=== PATIENT | female | born 1965 | race Caucasian/White ===

== ENCOUNTER 2019-12-15 08:52 | Outpatient (CLI) | payer BC, SELFPAY ==
--- NOTE | 2019-12-15 09:10 | IR_ITS ---
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 FLUOROSCOPY TIME: 1.2 minutes. Procedure, risks and complications were explained to the patient. Risks including bleeding, infection , headaches, allergic reaction and seizures. Consent has been obtained. With the patient in prone position the skin over the lumbar region is cleansed with ChloraPrep and an esthetized with lidocaine. 22-gauge spinal needle is inserted into the thecal sac at the appropriate level determined by fluoroscopy. Omnipaque 300; 10 ml is injected slowly under fluoroscopy with no co mplications. Needle bevel is perpendicular to the longitudinal fibers of the dura. Stylet is reinsert ed prior to removal of the needle. Patient tolerated the procedure well. Patient will proceed to CT f or further evaluation. Straightening of the normal cervical lordosis. No significant instability is demonstrated. Mild osteo phytic ridging around the vertebral bodies, most significant at C5 and C6. Osteophytes extend posteri warner by 2.7 mm from C5 and C6. No prevertebral soft tissue swelling. Facet joint arthropathy is moderate at L5-S1. 3 mm retrolisthesis of L2 and 2 mm retrolisthesis of L3 . IR/IR myelogram sp cervical 22167 IMPRESSION: 1. Uncomplicated cervical myelogram. 2. Mild straightening of the cervical spine with no instability. 3. Hypertrophic vertebral osteophytes most significant at the C5 and C6 level.
--- NOTE | 2019-12-15 09:11 | CT_ITS ---
WS: [id number] CT CERVICAL MYELOGRAM HISTORY: CERVICAL DISC DISORDER WITH MYELOPATHY OF MIDCERVICAL REGION Technique: All CT scans at [facility] use at least one of these dose optimization techniq ues: automated exposure control; mA and/or kV adjustment per patient size (includes targeted exams wh ere dose is matched to clinical indication); or iterative reconstruction. DLP: 1843.51 mGycm COMPARISON: 06/19/2014 and MRI 11/07/2018 Good opacification of thecal sac with contrast. Straightening of the normal cervical lordosis. No fractures in the craniocervical junction is normal. Lateral masses of C1 and C2 are aligned. Endplate hypertrophic osteophytes and mild disc disease fro m C3-4 through C6-7. C1-C2: Normal. C2-C3: Normal. C3-C4: Mild hypertrophic osteophytic ridging. Deformity of the ventral thecal sac greatest on the LEF T without significant stenosis. Near complete effacement of LEFT lateral CSF. C4-C5: Mild diffuse hypertrophic bone formation. No stenosis. C5-C6: Mild osteophytic ridging and annular disc bulging. Bilateral paracentral osteophyte encroachin g upon the ventral thecal sac. Effacement of CSF and mild deformity of the cord. Mild central and loyda ateral foraminal stenosis. C6-C7: Mild osteophytic ridging with mild encroachment upon the ventral thecal sac. Paravertebral soft tissues are normal. Bilateral small cervical chain lymph nodes and mild atheroscle rosis within the carotid arteries. Lung apices are clear. CT/CT cervical spine w con [id number] IMPRESSION: 1. Multilevel cervical spondylosis, most significant at C5-6. 2. Bilateral paracentral osteophyte encroachment upon the thecal sac and effac ement of CSF at C5-6. Resulting in mild central and bilateral foraminal stenosi s. Osteophytes contact the ventral cord bilaterally. 3. Smaller vertebral body osteophytes at C3-4 and C4-5 and C6-7.
[2019-12-15] MEDS: iohexol 300 mg/mL 50 mL Btl INTRATHECA (10:37)
== END 2019-12-15 08:53 | disposition home or self-care (01) ==
LOC: RADWPI 08:57
PROVIDERS: Family Provider Family Medicine; Visit Provider Licensed Practical Nurse
DX: M50.020 Cervical disc disorder with myelopathy, mid-cervical region, unspecified level (principal); M47.892 Other spondylosis, cervical region; M25.78 Osteophyte, vertebrae
CPT/HCPCS: 62302; 72040; 72126

== ENCOUNTER → 2020-01-13 15:07 | Outpatient (BNVA) | payer BC, SELFPAY | PROVIDERS: Family Provider Family Medicine; PCP Family Medicine; Referring Provider Licensed Practical Nurse; Visit Provider Psychiatry & Neurology Neurology | DX: M54.2 Cervicalgia (principal); G56.01 Carpal tunnel syndrome, right upper limb | CPT/HCPCS: 95886; 95908 ==

== ENCOUNTER 2020-04-29 06:04 | Day surgery (SDC) | payer BC, SELFPAY ==
[2020-04-28 12:02] VITALS: BMI 45.8
[2020-04-29 06:15] VITALS: BP 148/90; PULSE 82; RESP 18; TEMP 36.2; O2SAT 96
--- NOTE | 2020-04-29 06:33 | ANES.PREANE2 ---
Pre-Anesthetic Assessment Pre-Anesthetic Assessment: Height/Weight: Height 1.68 m Weight 128.82 kg Temp Pulse Resp BP Pulse Ox 97.2 F L 82 18 148/90 96 04/29/20 06:15 04/29/20 06:15 04/29/20 06:15 04/29/20 06:15 04/29/20 06:15 Preop Diagnosis: Median nerve entrapment at the right wrist Proposed Procedure: Operation Date: 04/29/20 07:10 Proposed Procedures p Open release of the median nerve at the right wrist 35291 G56.01(Right) - Noah Felipe MD Last intake: Intake Last Liquid Date 04/28/20 Last Solid Date 04/28/20 Social: Social History: Tobacco (2014 quit) and No alcohol Exam: Pre-Anes Outpt Exam: alert, oriented x 3, clear to auscultation bilaterally and regular rate & rhythm Airway: Submandibular: WNL Cervical ROM: WNL MP: 1 Dentition: False (upper and lower) History/ROS: No significant history except as noted Pulmonary: Pulmonary: CHILDRESS and Sleep apnea CV/HEM: CV/HEM: HTN : : None reported Hepatic: Hepatic: None reported GI: GI: GERD (occ) Metabolic: Metabolic: DM, Hyperlipidemia and Morbid obesity Musc/skel: Musc/skel: Lower Back Pain and OA/DJD Neuropsych: Neuropsych: Neuropathy (hands) Anesthetic Plan: ASA status: 3 Anesthesia: Anesthesia Evaluation and MAC Risk of > 500 ml blood loss (7ml/kg in children): No PFSH Anesthesia PFSH: Medical History (Updated 02/25/20 @ 14:31 by Noah Felipe MD) Cervical disc disorder with myelopathy of mid-cervical region Social History (Updated 02/25/20 @ 14:32 by Viviane Worrell LPN) Smoking and tobacco status: never smoked Alcohol intake: never Lives independently: Yes Marital status: / Current occupational status: employed History of recent travel: No Data Anesthesia Cardiac Studies: No Data to Display
[2020-04-29] MEDS: sodium chloride 0.9% 1,000 ML 30 ML IV (06:51)
--- NOTE | 2020-04-29 07:10 | W.PM.OPSUD ---
Surgery/Procedure H&P Update DATE OF PROCEDURE: April 29, 2020 DATE H&P PERFORMED: 04/16/20 H&P UPDATE INFORMATION: I have reviewed H&P completed within last 30 days and H&P to be scanned into chart PREOP DIAGNOSIS: Median nerve entrapment at the right wrist PRIMARY INDICATION FOR PROCEDURE: Pain/numbness PLANNED PROCEDURE: Operation Date: 04/29/20 07:10 Proposed Procedures Open release of the median nerve at the right wrist 60278 G56.01(Right) - Noah Felipe MD
--- NOTE | 2020-04-29 07:12 | P.OP_ITS ---
Brief Operative Note: Date of procedure: 04/29/20 Pre-op diagnosis: Median nerve entrapment at right wrist Post-op diagnosis: same Procedure Done: Open release of median nerve at right wrist. Surgeon: Noah Felipe Estimated blood loss (mL): 2 Complications: None. Post-op Plan: Home per A mbulatory Surgery protocol. Condition: stable Disposition: same day Coding Level of Care Code Acute Product Developer for Merlin Davey
[2020-04-29] MEDS: neomycin-poly-bacitracin oint 28 gm 1 APPLIC TOPICAL (07:35)
[2020-04-29 07:59] VITALS: BP 153/88; PULSE 84; RESP 18; TEMP 36.1; O2SAT 97
[2020-04-29 08:25] VITALS: BP 140/89; PULSE 75; RESP 18; O2SAT 96
--- NOTE | 2020-04-29 18:15 | P.OP_ITS ---
Operative Report Date of procedure: April 30, 2020 Pre-op Diagnosis: Median nerve entrapment at the right wrist Post-op diagnosis: same Procedure Done: Open release of the median nerve at the right wrist. Pathology: none sent Surgeon: Noah Felipe Anesthesia: MAC Estimated blood loss (mL): 2 IV fluids (mL): 400 Complications: None. Condition: stable Disposition: same day Brief History: The patient is a 54-year-old white female with symptomatic, electrodiagnostically confirmed moderately severe median nerve entrapment at the right wrist. Symptoms progressed and were refractory to conservative treatment measures, including wrist splinting. After review of the diagnostic and treatment options with the risks/potential benefits/rationale for each, the patient requested to proceed with open release of the median nerve at the right wrist. Procedure: After routine preoperative evaluation and informed consent were obtained, the patient was taken to the Operating Room and positioned supine on the operating table. She was maintained under intravenous sedation by Anesthesia personnel. The right upper extremity was extended on an arm board. A proposed incision was marked with a sterile skin marker. The extremity was scrubbed with Betadine and prepped with DuraPrep from the fingertips to the axilla. Sterile towels, sterile drapes, and a sterile stockinette were utilized for draping of the operative field. An opening was fashioned in the sterile stockinette over the palmar aspect of the right hand. An Ioban surgical barrier was placed. The proposed incision site was infiltrated with 1% Xylocaine with Epinephrine. A skin incision was made and carried down into the subcutaneous tissues. Self- retaining retractors were placed. The markedly thickened transverse carpal ligament was divided over the course of the median nerve in the palm. The ligament was divided distally until the palmar fat pad was encountered. Pr oximally, the ligament was divided with fine Metzenbaum scissors to a point approximately 2 centimeters above the wrist crease. There were mild epineural adhesions, which were treated with limited adhesiolysis. There was no evidence of residual median nerve impingement or entrapment in the visualized segment of the nerve at the completion of the procedure. The wound was then copiously irrigated with antibiotic irrigation. Hemostasis was ensured with the bipolar electrocautery. Wound closure was performed as a single layer utilizing 4-0 Nylon in a simple interrupted fashion. Antibiotic ointment was placed along the incision line. A bulky hand dressing was fashioned utilizing a combination of Kerlix fluffs, a Kerlix wrap, and an JAZZY/elastic bandage. The patient was transported to the Ambulatory Surgery Area for discharge home, as per the Ambulatory Surgery protocol. The patient tolerated the procedure well. All sponge, needle, and instrument counts were correct at the completion of the procedure.
== END 2020-04-29 09:09 | disposition home or self-care (01) ==
PROVIDERS: PCP Family Medicine; Visit Provider Specialist
PROC: (CPT 64721; principal; 2020-04-29 07:00)
DX: G56.01 Carpal tunnel syndrome, right upper limb (principal); Z87.891 Personal history of nicotine dependence; I10 Essential (primary) hypertension; K21.9 Gastro-esophageal reflux disease without esophagitis; E78.5 Hyperlipidemia, unspecified; M19.90 Unspecified osteoarthritis, unspecified site; E66.01 Morbid (severe) obesity due to excess calories; Z68.42 Body mass index [BMI] 45.0-49.9, adult; G47.30 Sleep apnea, unspecified; E11.40 Type 2 diabetes mellitus with diabetic neuropathy, unspecified
CPT/HCPCS: 64721; 12345; J0690; J2001; J2250; J2704; J3490; J7030

== ENCOUNTER 2020-06-30 14:04 | Outpatient (CLI) | payer BC, SELFPAY ==
--- NOTE | 2020-06-30 14:10 | XR_ITS ---
WS: [id number] HIP WITH PELVIS LEFT TECHNIQUE: 3 views of the left hip with pelvis CLINICAL INFORMATION: PAIN IN LEFT HIP COMPARISON: None. FINDINGS: Mild degenerative arthritis left hip. No acute fractures. Normal femoral neck. Osteopenia. XR/XR hip LT 2-3V wo/w pel* [id number] IMPRESSION: Mild degenerative arthritis left hip. No acute fractures.
== END 2020-06-30 14:05 | disposition home or self-care (01) ==
LOC: RAD 14:07
PROVIDERS: PCP Family Medicine; Visit Provider Anesthesiology Pain Medicine
DX: M25.552 Pain in left hip (principal); M16.12 Unilateral primary osteoarthritis, left hip
CPT/HCPCS: 73502

== ENCOUNTER 2020-12-27 15:10 | Outpatient (CLI) | payer OTHER, SELFPAY ==
--- NOTE | 2020-12-27 15:19 | MM_ITS ---
WS: [id number] BILATERAL SCREENING DIGITAL MAMMOGRAM WITH CAD HISTORY: SCREENING COMPARISON: 01/31/2019, 01/15/2018 and 12/21/2017 and 03/27/2013 Bilateral CC and MLO views submitted. Computer aided detection analyzed. Breast composition: There are scattered areas of fibroglandular density. No suspicious masses, microc alcifications or architectural distortion. Lobulated nodule in the central LEFT breast is similar to prior studies. MM/[place] [id number] IMPRESSION: BI-RADS: 2-Benign FOLLOW UP: 1 Year Follow-up
== END 2020-12-27 15:11 | disposition home or self-care (01) ==
LOC: RADSHAW 15:17
PROVIDERS: Visit Provider Nurse Practitioner Family
DX: Z12.31 Encounter for screening mammogram for malignant neoplasm of breast (principal)
CPT/HCPCS: 77067

== ENCOUNTER 2022-04-11 11:49 | Outpatient (CLI) | payer OTHER, SELFPAY ==
--- NOTE | 2022-04-11 12:12 | XRR_ITS ---
PROCEDURE INFORMATION: Exam: XR Left Shoulder Exam date and time: 04/11/2022 12:12 PM Age: 56 years old Clinical indication: Pain; Shoulder; Left; Additional info: Shoulder joint pain-l shoulder TECHNIQUE: Imaging protocol: XR Left shoulder. Views: 2 or more views. COMPARISON: CT cervical spine w con [id number] 12/15/2019 10:23 AM FINDINGS: Bones/joints: There is an old healed fracture of the shaft of the clavicle. No recent fracture, dislocation or other acute abnormality. There is chronic spurring on the undersurface of the acromion. The joint spaces are not significantly narrowed. Soft tissues: Normal. XR/XR shoulder LT min 2V* [id number] IMPRESSION: Chronic spurring on the undersurface of the acromion. No acute abnormality.
--- NOTE | 2022-04-11 12:12 | XRR_ITS ---
PROCEDURE INFORMATION: Exam: XR Left Knee Exam date and time: 04/11/2022 12:12 PM Age: 56 years old Clinical indication: Pain; Knee; Left; Additional info: Left knee joint pain TECHNIQUE: Imaging protocol: XR Left knee. Views: 4 or more views. COMPARISON: CR Knee 3 views, LEFT* [id number] 01/02/2018 3:04 PM FINDINGS: Bones/joints: No fracture or other acute bone or joint abnormality. Moderate DJD is present with osteophytes on the patella, femoral condyles and tibial plateau. There is moderate joint space narrowing. Soft tissues: Normal. XR/XR knee LT 4V [id number] IMPRESSION: Moderate degenerative disease. No acute abnormality.
== END 2022-04-11 11:50 | disposition home or self-care (01) ==
PROVIDERS: PCP Nurse Practitioner Family; Visit Provider Nurse Practitioner Family
DX: M25.512 Pain in left shoulder (principal)
CPT/HCPCS: 73030; 73564

== ENCOUNTER 2022-06-27 13:12 | Outpatient (CLI) | payer OTHER, SELFPAY ==
--- NOTE | 2022-06-27 13:20 | MM_ITS ---
WS: [id number] BILATERAL 3D TOMOSYNTHESIS DIGITAL SCREENING MAMMOGRAPHY WITH CAD CLINICAL INFORMATION: SCREENING HISTORY: Screening mammogram. No current complaints. COMPARISON: December 27, 2020 TECHNIQUE: Bilateral CC and MLO views. FINDINGS: Scattered fibroglandular densities bilaterally. Incidental punctate calcifications. Stable ovoid nodu le central LEFT breast. No suspicious focal mass, asymmetry, calcifications, or architectural distort ion. No evidence of malignancy. MM/[place] [id number] IMPRESSION: BI-RADS: 2-Benign FOLLOW UP: 1 Year Follow-up Recommend return to annual screening mammography.
== END 2022-06-27 13:13 | disposition home or self-care (01) ==
LOC: RAD 13:12
PROVIDERS: PCP Nurse Practitioner Family; Visit Provider Nurse Practitioner Family
DX: Z12.31 Encounter for screening mammogram for malignant neoplasm of breast (principal)
CPT/HCPCS: 77063; 77067

== ENCOUNTER → 2022-08-16 14:48 | Outpatient (BNVA) | payer OTHER, SELFPAY | PROVIDERS: PCP Nurse Practitioner Family; Visit Provider Specialist | DX: M25.511 Pain in right shoulder (principal); M25.512 Pain in left shoulder; G89.29 Other chronic pain | CPT/HCPCS: 73030 ==

== ENCOUNTER 2023-02-14 06:02 | Outpatient (CLI) | payer OTHER, SELFPAY ==
--- NOTE | 2023-02-14 | US_ITS ---
WS: [id number] ABDOMINAL ULTRASOUND LIMITED REASON FOR EXAM: EPIGASTRIC PAIN COMPARISON: None available. ORDER DATE: 02/14/2023 6:11 AM TECHNIQUE: Grayscale and Doppler ultrasound examination of the abdomen. FINDINGS: Pancreas: Unremarkable as visualized Abdominal aorta: 24 mm in diameter. IVC unremarkable measuring 21 mm in diameter Liver: Liver measures 18.1 cm in length suggesting mild hepatomegaly. Normal echotexture Gallbladder: No evidence of calculi Gallbladder wall thickness measures 0.2 mm. Common bile duct 3.1 mm in diameter Right kidney: Right kidney measures 12.0 cm x 6.1 cm x 4.9 cm. Right kidney cortex measures 1.3 cm. There is normal duplex vascular flow in the right kidney US/US abdomen limited [id number] IMPRESSION: Mild hepatomegaly otherwise unremarkable study
== END 2023-02-14 06:03 | disposition home or self-care (01) ==
LOC: RAD 06:05
PROVIDERS: PCP Nurse Practitioner Family; Visit Provider Nurse Practitioner Family
DX: R10.13 Epigastric pain (principal); R16.0 Hepatomegaly, not elsewhere classified
CPT/HCPCS: 76705

== ENCOUNTER 2023-05-30 07:41 | Outpatient (CLI) | payer OTHER, SELFPAY ==
--- NOTE | 2023-05-30 08:00 | NM_ITS ---
WS: [id number] NUCLEAR MEDICINE HIDA SCAN WITH GALLBLADDER EJECTION FRACTION HISTORY: EPIGASTRIC PAIN COMPARISON: Limited ultrasound 02/14/2023. TECHNIQUE: The patient was intravenously injected with 7.9 mCi of TC99m Mebrofenin. Immediate imaging over the right upper quadrant was followed by 5 minute image and additional images for a total of 60 minutes. Normal uptake of radiotracer throughout the liver. Activity identified in the gallbladder at 40 minutes and well distended by 60 minutes. Activity in the proximal small bowel was seen by 20 minutes. Good washout of the radiotracer from the liver by 60 minutes. The patient then drank 8 ounces of Ensure Plus. Ejection fraction at 60 minutes was 68%. Normal GB ej ection fraction is 35-75%. Post fatty meal symptoms: None. NM/NM hepatobiliary w phar* [id number] IMPRESSION: 1. Normal HIDA scan. 2. Normal gallbladder ejection fraction.
== END 2023-05-30 07:42 | disposition home or self-care (01) ==
PROVIDERS: PCP Nurse Practitioner Family; Visit Provider Nurse Practitioner Family
DX: R10.13 Epigastric pain (principal)
CPT/HCPCS: 78227; A9537

== ENCOUNTER 2023-06-20 12:22 | Outpatient (CLI) | payer OTHER, SELFPAY ==
--- NOTE | 2023-06-20 12:38 | XR_ITS ---
WS: [id number] EXAMINATION: XR wrist LT min 3V* [id number] REASON FOR EXAM: L WRIST PAIN COMPARISON: None available. ORDER DATE: 06/20/2023 12:44 PM FINDINGS: There is no sign of any acute osseous or articular abnormality. There are no specific soft tissue abn ormalities. XR/XR wrist LT min 3V* [id number] IMPRESSION: No acute change
== END 2023-06-20 12:23 | disposition home or self-care (01) ==
PROVIDERS: PCP Nurse Practitioner Family; Visit Provider Nurse Practitioner Family
DX: M25.532 Pain in left wrist (principal)
CPT/HCPCS: 73110

== ENCOUNTER 2023-08-28 11:45 | Outpatient (CLI) | payer OTHER, SELFPAY ==
--- NOTE | 2023-08-28 | ECG_ITS ---
[facility] Test Date: 2023-08-28 Pat Name: Bambi Garay Department: Room: Gender: Female Crematory Operator: Anai Maldonado : 1965 Requested By: Sonia Crook Order Number: [id number] Nii MD: Patricia Mahan M.D. Interpretive Statements NAME OF STUDY: TREADMILL STRESS TEST INDICATION: Chest Pain Baseline blood pressure of 156/92 mm Hg, heart rate 96 beats per minute and oxygen saturation of 93%. EKG showed sinus rhythm, normal axis with old septal infarct. The patient exercised for 2 minutes 46 seconds on a standard Patrick protocol. Patient attained a maximum heart rate of 145 beats per minute(88% of the maximum predicted heart rate) with a blood pressure at the peak exercise of 179/89 mm Hg and saturation of 93%. The EKG at the peak exercise revealed sinus tachycardia with no significant ST-T wave changes. Patient did not have any chest pain or any significant arrhythmis with the exercise. Study was terminated due to maximal effort During the recovery phase, there were no new changes. Blood pressure at the end of the recovery phase was 53/85 mm Hg with a heart rate of 92 beats per minute present saturation of 93%. CONCLUSION: 1. Normal EKG response to treadmill exercise. 2. No exercise-induced chest pain or cardiac arrhythmia 3. Decreased exercise tolerance, attained a maximum of 4.6 METs. 4. Baseline hypertension with normal response to exercise. Electronically Signed On 08-31-2023 14:21:15 CDT by Patricia Mahan M.D. [id number]
[2023-08-28 11:54] VITALS: BMI 45.6
[2023-08-28 12:30] VITALS: BP 153/85; PULSE 91
== END 2023-08-28 11:46 | disposition home or self-care (01) ==
LOC: CDL 11:47
PROVIDERS: PCP Nurse Practitioner Family; Visit Provider Nurse Practitioner Family
DX: R07.9 Chest pain, unspecified (principal)
CPT/HCPCS: 93017

== ENCOUNTER 2024-08-29 07:20 | Outpatient (CLI) | payer OTHER, SELFPAY ==
--- NOTE | 2024-08-29 07:29 | MM_ITS ---
WS: [id number] BILATERAL SCREENING DIGITAL TOMOSYNTHESIS MAMMOGRAM WITH CAD HISTORY: SCREENING COMPARISON: 06/27/2022, 12/21/2017 Bilateral CC and MLO views with tomosynthesis and synthetic mammography submitted. Computer aided det ection analyzed. Breast composition: There are scattered areas of fibroglandular density. No suspicious masses, microc alcifications or architectural distortion. Stable lobulated mass in the central LEFT breast over mult iple prior years. Benign scattered calcifications. MM/MM scr BI tomosynthesis [id number] IMPRESSION: BI-RADS: 2 - Benign. FOLLOW UP: 1 Year Follow-up
== END 2024-08-29 07:21 | disposition home or self-care (01) ==
LOC: RAD 07:21
PROVIDERS: PCP Nurse Practitioner Family; Visit Provider Nurse Practitioner Family
DX: Z12.31 Encounter for screening mammogram for malignant neoplasm of breast (principal); R92.323 Mammographic fibroglandular density, bilateral breasts; N63.20 Unspecified lump in the left breast, unspecified quadrant; R92.1 Mammographic calcification found on diagnostic imaging of breast
CPT/HCPCS: 77063; 77067

== ENCOUNTER 2025-04-27 06:44 | Outpatient (CLI) | payer OTHER, SELFPAY ==
--- NOTE | 2025-04-27 06:57 | MR_ITS ---
WS: [id number] MRI RIGHT SHOULDER HISTORY: SHOULDER JOINT pain, RIGHT COMPARISON: Radiograph 12/20/2024 TECHNIQUE: Multiplanar sequences of the shoulder joint are submitted. Severe AC joint arthritis. There is fluid along the AC joint with loss of the normal cartilage and erosions involving the distal clavicle and adjacent acromion. Soft tissue thickening from synovitis with edema. Fluid in the subacromial and subdeltoid bursa. Marked subacromial impingement. Os acromion. Fluid extending through the pseudoarticulation of the os acromion. There may be some instability from the nonunion due to the fluid. Biceps tendon is absent from the bicipital groove. Biceps tendon is dislocated and medial to the subscapularis tendon. The visualized subscapularis tendon which is lateral to the bicipital groove is heterogeneous and thickened. High riding humeral head abuts the undersurface of the acromion with subacromial impingement. Osteophytic ridging with loss of cartilage surrounding the humeral head. Large osteophytes from the lesser tuberosity is causing displacement of the biceps tendon. Moderate fluid surrounding the humeral head extending into the axillary pouch. Mild infraspinatus tendinopathy with edema. Otherwise mild subscapularis tendinopathy but no edema. Coracohumeral ligament edema. Complete tear of the supraspinatus and infraspinatus tendons with retraction. Retracted tendons are frayed and edematous. Majority of the subscapularis tendon appears intact but thinned. Remote reverse Bankart lesion. There is avulsion of the posterior labrum and glenoid rim avulsion. Remaining labrum shows substance degeneration but no additional tears. MR/MR shoulder RT wo con* [id number] IMPRESSION: 1. Severe AC joint arthropathy with synovitis and articular surface erosions. 2. Os acromiale with fluid along the pseudoarticulation suggesting instability . 3. High riding humeral head abutting the undersurface of the acromion. 4. Complete tears with retraction of the infraspinatus and supraspinatus tendo ns. There is atrophy of each muscle and edema within the infraspinatus muscle. 5. Dislocated biceps tendon. Tendon is dislocated medial to the subscapularis tendon with marked tendinopathy and fluid along the tendon sheath. 6. Reverse Bankart lesion. 7. Subscapularis tendon distally is thin but intact.
== END 2025-04-27 06:45 | disposition home or self-care (01) ==
PROVIDERS: PCP Nurse Practitioner Family; Visit Provider Nurse Practitioner Family
DX: M12.811 Other specific arthropathies, not elsewhere classified, right shoulder (principal); M65.811 Other synovitis and tenosynovitis, right shoulder; R93.89 Abnormal findings on diagnostic imaging of other specified body structures; M62.511 Muscle wasting and atrophy, not elsewhere classified, right shoulder; M67.813 Other specified disorders of tendon, right shoulder; M24.411 Recurrent dislocation, right shoulder; M75.41 Impingement syndrome of right shoulder; M25.711 Osteophyte, right shoulder; M75.121 Complete rotator cuff tear or rupture of right shoulder, not specified as traumatic
CPT/HCPCS: 73221

== ENCOUNTER → 2025-05-13 12:56 | Outpatient (BNVA) | payer OTHER, SELFPAY | PROVIDERS: PCP Nurse Practitioner Family; Visit Provider Specialist | DX: M12.811 Other specific arthropathies, not elsewhere classified, right shoulder (principal); G89.29 Other chronic pain | CPT/HCPCS: 73030 ==

== ENCOUNTER 2025-09-30 14:14 | Outpatient (CLI) | payer OTHER, SELFPAY ==
--- NOTE | 2025-09-30 14:19 | MM_ITS ---
WS: [id number] BILATERAL 3D TOMOSYNTHESIS DIGITAL SCREENING MAMMOGRAPHY WITH CAD CLINICAL INFORMATION: SCREENING HISTORY: Screening mammogram. No current complaints. COMPARISON: 2023 TECHNIQUE: Bilateral CC and MLO views. FINDINGS: Scattered fibroglandular densities bilaterally. Stable lobulated nodule central LEFT breast. Incidental punctate calcifications. Suspicious spiculated asymmetry posterior depth RIGHT breast near the chest wall measuring 9 mm. This localizes to the central breast at the chest wall. Recommend further evaluation with RIGHT breast diagnostic mammography and ultrasound. Stable LEFT breast. MM/MM [facility] tomosynthesis [id number] IMPRESSION: DENSITY: There are scattered areas of fibroglandular density. BI-RADS: 0 - Incomplete: Need additional imaging evaluation. FOLLOW UP: Need Additional Imaging Recommend RIGHT breast diagnostic mammography and ultrasound.
== END 2025-09-30 14:15 | disposition home or self-care (01) ==
LOC: RAD 14:14
PROVIDERS: PCP Nurse Practitioner Family; Visit Provider Nurse Practitioner Family
DX: Z12.31 Encounter for screening mammogram for malignant neoplasm of breast (principal); R92.323 Mammographic fibroglandular density, bilateral breasts; N64.89 Other specified disorders of breast
CPT/HCPCS: 77063; 77067

== ENCOUNTER 2025-10-08 14:10 | Outpatient (CLI) | payer OTHER, SELFPAY ==
--- NOTE | 2025-10-08 14:18 | MM_ITS ---
WS: [id number] RIGHT 3D TOMOSYNTHESIS DIGITAL MAMMOGRAPHY WITH CAD CLINICAL INFORMATION: ABNORMAL R MAMMOGRAM HISTORY: Additional views COMPARISON: 2024 TECHNIQUE: 3 views of the right breast were obtained. FINDINGS: Scattered fibroglandular densities of the right breast. Spiculated lesion RIGHT breast near 12:00 again visualized. Ultrasound of this area is pending ULTRASOUND BREAST RIGHT TECHNIQUE: Ultrasound right breast focused area of concern. CLINICAL INFORMATION: ABNORMAL R MAMMOGRAM FINDINGS: Ultrasound RIGHT breast 11 to 1 o'clock position. Dense shadowing mass with a suspicious appearance measuring 1.4 x 0.9 x 1.1 cm at the 12 o'clock position 5 cm from the nipple. Recommend further evaluation with ultrasound-guided biopsy. MM/MM diag RT tomosynthesis [id number] IMPRESSION: DENSITY: There are scattered areas of fibroglandular density. BI-RADS: 4 - Suspicious Finding - Biopsy Should Be Considered. FOLLOW UP: US Guided Biopsy Recommended Recommend ultrasound-guided biopsy of the RIGHT breast lesion
== END 2025-10-08 14:11 | disposition home or self-care (01) ==
LOC: RAD 14:11
PROVIDERS: PCP Nurse Practitioner Family; Visit Provider Family Medicine
DX: R92.8 Other abnormal and inconclusive findings on diagnostic imaging of breast (principal); R92.321 Mammographic fibroglandular density, right breast; N63.12 Unspecified lump in the right breast, upper inner quadrant
CPT/HCPCS: 76642; 77061; G0279

== ENCOUNTER 2025-10-28 13:30 | Outpatient (CLI) | payer OTHER, SELFPAY ==
--- NOTE | 2025-10-28 13:38 | US_ITS ---
WS: [id number] ULTRASOUND-GUIDED RIGHT BREAST BIOPSY HISTORY: R ABNORMAL MAMMOGRAM COMPARISON: 10/08/2025, 09/30/2025 Procedure, risks and complications are explained to the patient. Medications are reviewed. Consent is obtained. The mass in the RIGHT breast is localized with ultrasound. Mass localizes to 12:00, 5 cm from the nipple. Skin is cleansed with ChloraPrep and anesthetized with 1% buffered lidocaine. Small dermatome is made. Under sterile conditions mass is biopsied with a 14-gauge Achieve needle. Multiple core biopsies are performed. Material placed in formalin and sent to pathology for review. No complications encountered. Breast tissue marker (Bard ultrasound enhanced ribbon): Single. Patient left the radiology suite with no complications. Patient is instructed to return to [facility] or call with any concerns. US/[place] [id number] IMPRESSION: 1. Uncomplicated core needle biopsy RIGHT breast mass at 12:00. PATHOLOGY: Invasive mammary carcinoma, with ductal and lobular features. Nuclea r grade 1-2. Breast prognostic profile will be reported separately. RECOMMENDATION: Follow-up with breast surgery and oncology.
== END 2025-10-28 13:31 | disposition home or self-care (01) ==
LOC: RAD 13:31
PROVIDERS: PCP Nurse Practitioner Family; Visit Provider Family Medicine
DX: R92.8 Other abnormal and inconclusive findings on diagnostic imaging of breast (principal); C50.811 Malignant neoplasm of overlapping sites of right female breast
CPT/HCPCS: 19083; 88305; 88361; 88374